=== PATIENT | male | born 1990 | race Caucasian/White ===

== ENCOUNTER 2019-01-25 11:18 | Inpatient (IN) | payer BC ==
--- NOTE | 2019-01-25 12:46 | EDM.PDOC ---
ED HPI GENERAL MEDICAL PROBLEM - General Chief Complaint: Neurological Problem Stated Complaint: MS FLARE UP Time Seen by Provider: 01/25/19 12:38 Source of Information: Reports: Patient, Family, RN Notes Reviewed History Limitations: Reports: No Limitations - History of Present Illness INITIAL COMMENTS - FREE TEXT/NARRATIVE: 28-year-old gentleman presents to the emergency department today with complaint of numbness and tingling below his knees as well as his fingertips bilaterally, he has a known history of multiple sclerosis currently on Tysabri infusions. He states his had the symptoms for the last 48 hours he also feels very weak today feels he's had a change in voice as well. He did contact his neurologist recommend report to the emergency department for evaluation and then consultation Headache Pain Score (Numeric/FACES): 3 - Related Data Allergies Allergy/AdvReac Type Severity Reaction Status Date / Time gadoteridol [From Prohance] Allergy Mild Itching Verified 01/25/19 11:46 Home Meds: Home Meds Natalizumab [Tysabri] 300 mg IV ASDIRECTED 01/25/19 [History] Past Medical History HEENT History: Reports: Impaired Vision Neurological History: Reports: MS Endocrine/Metabolic History: Reports: Obesity/BMI 30+ Social & Family History - Tobacco Use Smoking Status *Q: Never Smoker - Caffeine Use Caffeine Use: Reports: Coffee - Recreational Drug Use Recreational Drug Use: No ED ROS GENERAL - Review of Systems Review Of Systems: See Below Constitutional: Reports: Weakness HEENT: Reports: No Symptoms Respiratory: Reports: Cough Cardiovascular: Reports: No Symptoms GI/Abdominal: Reports: No Symptoms : Reports: No Symptoms Musculoskeletal: Reports: No Symptoms Skin: Reports: No Symptoms Neurological: Reports: Numbness, Tingling ED EXAM, GENERAL - Physical Exam Exam: See Below Exam Limited By: No Limitations General Appearance: Alert, WD/WN, No Apparent Distress Respiratory/Chest: No Respiratory Distress, Lungs Clear, Normal Breath Sounds, No Accessory Muscle Use, Chest Non-Tender Cardiovascular: Regular Rate, Rhythm, No Murmur GI/Abdominal: Soft, Non-Tender Course - Vital Signs Last Recorded V/S: Last Vital Signs Temp 96.7 F 01/25/19 12:51 Pulse 107 H 01/25/19 12:51 Resp 20 01/25/19 12:51 BP 147/97 H 01/25/19 12:51 Pulse Ox 95 01/25/19 12:51 - Orders/Labs/Meds Orders: Active Orders 24 hr Category Date Time Status ZIA VIRUS DNA,PCR (WHOLE BLOOD) Routine Lab 01/25/19 13:25 Received UA W/MICROSCOPIC [URIN] Urgent Lab 01/25/19 12:43 Ordered methylPREDNISolone Sod Succ [SOLU-Medrol] 1,000 mg Med 01/25/19 15:00 Active Dextrose 5% in Water 100 ml IV ONETIME Medication Orders Methylprednisolone Sodium Succinate 1,000 mg/ Dextrose/Water 100 mls @ 100 mls/ hr IV ONETIME ONE Stop: 01/25/19 15:59 Labs: Laboratory Tests 01/25/19 01/25/19 01/25/19 Range/Units 13:01 13:01 13:01 WBC 8.7 (4.5-11.0) K/uL RBC 5.03 (4.30-5.90) M/uL Hgb 15.0 (12.0-15.0) g/dL Hct 41.8 (40.0-54.0) % MCV 83 (80-98) fL MCH 30 (27-31) pg MCHC 36 (32-36) % Plt Count 255 (150-400) K/uL Neut % (Auto) 70 H (36-66) % Lymph % (Auto) 21 L (24-44) % [place] % (Auto) 8 H (2-6) % Eos % (Auto) 1 L (2-4) % Baso % (Auto) 1 (0-1) % Sodium 138 L (140-148) mmol/L Potassium 4.2 (3.6-5.2) mmol/L Chloride 100 (100-108) mmol/L Carbon Dioxide 25 (21-32) mmol/L Anion Gap 17.2 H (5.0-14.0) mmol/L BUN 10 (7-18) mg/dL Creatinine 1.0 (0.8-1.3) mg/dL Est Cr Clr Drug Dosing 128.50 mL/min Estimated GFR (MDRD) > 60 (>60) Glucose 121 H (74-106) mg/dL Lactic Acid 3.0 H (0.4-2.0) mmol/L Calcium 9.2 (8.5-10.1) mg/dL Total Bilirubin 1.0 (0.2-1.0) mg/dL AST 29 (15-37) U/L ALT 56 (12-78) U/L Alkaline Phosphatase 53 (46-116) U/L C-Reactive Protein (0.0-0.3) mg/dL Total Protein 8.2 (6.4-8.2) g/dL Albumin 4.6 (3.4-5.0) g/dL Globulin 3.6 H (2.3-3.5) g/dL Albumin/Globulin Ratio 1.3 (1.2-2.2) 01/25/19 Range/Units 13:01 WBC (4.5-11.0) K/uL RBC (4.30-5.90) M/uL Hgb (12.0-15.0) g/dL Hct (40.0-54.0) % MCV (80-98) fL MCH (27-31) pg MCHC (32-36) % Plt Count (150-400) K/uL Neut % (Auto) (36-66) % Lymph % (Auto) (24-44) % [place] % (Auto) (2-6) % Eos % (Auto) (2-4) % Baso % (Auto) (0-1) % Sodium (140-148) mmol/L Potassium (3.6-5.2) mmol/L Chloride (100-108) mmol/L Carbon Dioxide (21-32) mmol/L Anion Gap (5.0-14.0) mmol/L BUN (7-18) mg/dL Creatinine (0.8-1.3) mg/dL Est Cr Clr Drug Dosing mL/min Estimated GFR (MDRD) (>60) Glucose (74-106) mg/dL Lactic Acid (0.4-2.0) mmol/L Calcium (8.5-10.1) mg/dL Total Bilirubin (0.2-1.0) mg/dL AST (15-37) U/L ALT (12-78) U/L Alkaline Phosphatase (46-116) U/L C-Reactive Protein 0.04 (0.0-0.3) mg/dL Total Protein (6.4-8.2) g/dL Albumin (3.4-5.0) g/dL Globulin (2.3-3.5) g/dL Albumin/Globulin Ratio (1.2-2.2) Meds: Medications Generic Name Dose Route Start Last Admin Trade Name Sharon PRN Reason Stop Dose Admin Methylprednisolone Sodium 100 mls @ 100 mls/hr 01/25/19 15:00 Succinate 1,000 mg/ Dextrose/ IV 01/25/19 15:59 Water ONETIME ONE Departure - Departure Time of Disposition: 14:53 Disposition: Admitted As Inpatient 65 Condition: Fair Clinical Impression: MS (multiple sclerosis) - Discharge Information Referrals: Sonu Elizabeth CORN HUSK BALER [Primary Care Provider] - Forms: ED Department Discharge Additional Instructions: Appointment for MRI on 01/27/19 at 10:45 am. MRI brain Appointment for MRI on Thursday01/28/19 at 8:30 am. MRI spine - My Orders Last 24 Hours: My Active Orders 01/25/19 12:43 UA W/MICROSCOPIC [URIN] Urgent 01/25/19 13:25 ZAI VIRUS DNA,PCR (WHOLE BLOOD) Routine 01/25/19 15:00 methylPREDNISolone Sod Succ [SOLU-Medrol] 1,000 mg Dextrose 5% in Water 100 ml IV ONETIME - Assessment/Plan Last 24 Hours: My Active Orders 01/25/19 12:43 UA W/MICROSCOPIC [URIN] Urgent 01/25/19 13:25 ZIA VIRUS DNA,PCR (WHOLE BLOOD) Routine 01/25/19 15:00 methylPREDNISolone Sod Succ [SOLU-Medrol] 1,000 mg Dextrose 5% in Water 100 ml IV ONETIME Plan: Assessment Acuity = acute Site and laterality = exacerbation multiple sclerosis Etiology = unknown etiology Manifestations = weakness, numbness and tingling in the extremities Location of injury = Home Lab values = CBC, CMP unremarkable lactic acid elevated 3.0 CRP unremarkable chest x-ray shows no acute process, urinalysis is pending Plan Called discussed the case with Dr. Enrique neurologist at the [facility] neurology clinic at 1430 recommended 1 g steroids per day followed by MRI of brain cervical spine and thoracic spine with and without contrast. Called discussed case with hospitalist on-call at 1449 he kindly agreed to come and evaluate the patient in the emergency department for admission This note was dictated using [employer] voice recognition software please call with any questions on syntax or grammar.
--- NOTE | 2019-01-25 13:33 | CRLCR ---
INDICATION: Shortness of breath COMPARISON: None available. FINDINGS: PA and lateral views of the chest were obtained. The lungs are clear. No focal or diffuse infiltrates are present. The heart is normal in size. The mediastinum is normal in appearance. The osseous structures are normal in appearance for the patient`s age. IMPRESSION: Normal chest 2 views. Dictated by Jone Brown MD @ Jan 25 2019 1:30PM Signed by Dr. Jone Brown @ Jan 25 2019 1:31PM
[2019-01-25] MEDS ORDERED: methylPREDNISolone Sod Succ 1,000 MG in Dextrose 5% in Water 100 ML IV ONE ×4 (14:42→15:00)
--- NOTE | 2019-01-25 15:53 | PCM.HP.2 ---
H&P History of Present Illness - General Date of Service: 01/25/19 Admit Problem/Dx: Admission Diagnosis/Problem Admission Diagnosis/Problem Multiple sclerosis Source of Information: Patient, Provider History Limitations: Reports: No Limitations - History of Present Illness Initial Comments - Free Text/Narative: CC: my body feels like it just had a cast HPI: Himanshu presents to the emergency room today with 2 days of progressive muscle weakness as well as numbness and tingling involving his hands and legs. He noticed mild symptoms on Thursday, 2 days ago and also had symptoms yesterday that were worse but he was still able to work. Today he is too weak to do much of anything. He is concerned about weakness involving his speech, swallowing as well as his larger proximal muscles in both upper and lower extremities. He has developed some numbness and pins and needles tingling that involves his hands and his legs from the knee distally. He has noticed mild coughing/choking when trying to drink water unless he drinks very small sips. He has a mild generalized headache. No complaints about blurry vision or double vision. He feels a little short of breath and this has been slowly progressive over the past 24 hours. No complaints of chest pain or abdominal pain. No nausea or vomiting. No change in bowel or bladder habits. This feels similar to his previous flareups of multiple sclerosis though this one is more intense than usual. Workup in the emergency room has been reassuring so far with normal laboratory studies other than a mildly elevated lactic acid level. Vital signs are stable. Care was discussed with his neurologist and he recommended high-dose steroids and imaging of the brain, cervical spine and thoracic spine. He will be admitted to the hospital for further management. Headache Pain Score (Numeric/FACES): 3 - Related Data Allergies/Adverse Reactions: Allergies Allergy/AdvReac Type Severity Reaction Status Date / Time gadoteridol [From Prohance] Allergy Mild Itching Verified 01/25/19 11:46 Home Medications: Home Meds Natalizumab [Tysabri] 300 mg IV ASDIRECTED 01/25/19 [History] Past Medical History HEENT History: Reports: Impaired Vision Neurological History: Reports: MS Endocrine/Metabolic History: Reports: Obesity/BMI 30+ Social & Family History - Family History Neurological: Denies: MS - Tobacco Use Smoking Status *Q: Never Smoker - Caffeine Use Caffeine Use: Reports: Coffee - Alcohol Use Alcohol Use History: Yes - Recreational Drug Use Recreational Drug Use: No H&P Review of Systems - Review of Systems: Review Of Systems: See Below Free Text/Narrative: A complete 12 point review of systems was obtained. Pertinent positives and negatives are noted in the history of present illness. All other systems were reviewed and were negative except as noted. Exam - Exam Exam: See Below - Vital Signs Vital Signs: Last Vital Signs Temp 35.9 C 01/25/19 12:51 Pulse 105 H 01/25/19 15:07 Resp 18 01/25/19 15:07 BP 155/94 H 01/25/19 15:07 Pulse Ox 93 L 01/25/19 15:07 Weight: 136.985 kg - Exam Quality Assessment: No: Supplemental Oxygen General: Alert, Oriented, Cooperative. No: Mild Distress HEENT: Conjunctiva Clear, Mucosa Moist & [place]. No: Scleral Icterus Neck: Supple, Trachea Midline. No: Lymphadenopathy Lungs: Clear to Auscultation, Normal Respiratory Effort Cardiovascular: Regular Rate, Regular Rhythm. No: Systolic Murmur GI/Abdominal Exam: Normal Bowel Sounds, Soft, Non-Tender, No Distention Extremities: No Pedal Edema. No: Increased Warmth Peripheral Pulses: 2+: Dorsalis Pedis (L), Dorsalis Pedis (R) Skin: Warm, Dry. No: Rash Neuro Extensive - Mental Status: Alert, Oriented x3, Nl Response to Commands Neuro Extensive - Motor, Sensory, Reflexes: CN II-XII Intact, Abnormal Motor ( strength is 5 x 5 and symmetric at the hands and wrists as well as plantar and dorsi flexion of the feet. Strength is 4+/5 with knee extension and flexion as well as hip flexion. Strength is 4+/5 with flexion at the biceps and extension at the triceps). No: Dysarthria, Tremor DTR: 0: Bicep (L), Bicep (R), Patella (L), Patella (R) Psychiatric: Alert, Normal Affect - Patient Data Lab Results Last 24 hrs: Laboratory Results - last 24 hr 01/25/19 01/25/19 01/25/19 Range/Units 13:01 13:01 13:01 WBC 8.7 (4.5-11.0) K/uL RBC 5.03 (4.30-5.90) M/uL Hgb 15.0 (12.0-15.0) g/dL Hct 41.8 (40.0-54.0) % MCV 83 (80-98) fL MCH 30 (27-31) pg MCHC 36 (32-36) % Plt Count 255 (150-400) K/uL Neut % (Auto) 70 H (36-66) % Lymph % (Auto) 21 L (24-44) % [place] % (Auto) 8 H (2-6) % Eos % (Auto) 1 L (2-4) % Baso % (Auto) 1 (0-1) % Sodium 138 L (140-148) mmol/L Potassium 4.2 (3.6-5.2) mmol/L Chloride 100 (100-108) mmol/L Carbon Dioxide 25 (21-32) mmol/L Anion Gap 17.2 H (5.0-14.0) mmol/L BUN 10 (7-18) mg/dL Creatinine 1.0 (0.8-1.3) mg/dL Est Cr Clr Drug Dosing 128.50 mL/min Estimated GFR (MDRD) > 60 (>60) Glucose 121 H (74-106) mg/dL Lactic Acid 3.0 H (0.4-2.0) mmol/L Calcium 9.2 (8.5-10.1) mg/dL Total Bilirubin 1.0 (0.2-1.0) mg/dL AST 29 (15-37) U/L ALT 56 (12-78) U/L Alkaline Phosphatase 53 (46-116) U/L C-Reactive Protein (0.0-0.3) mg/dL Total Protein 8.2 (6.4-8.2) g/dL Albumin 4.6 (3.4-5.0) g/dL Globulin 3.6 H (2.3-3.5) g/dL Albumin/Globulin Ratio 1.3 (1.2-2.2) Urine Color (YELLOW) Urine Appearance (CLEAR) Urine pH (5.0-8.0) Ur Specific [place] (1.008-1.030) Urine Protein (NEGATIVE) mg/dL Urine Glucose (UA) (NEGATIVE) mg/dL Urine Ketones (NEGATIVE) mg/dL Urine Occult Blood (NEGATIVE) Urine Nitrite (NEGATIVE) Urine Bilirubin (NEGATIVE) Urine Urobilinogen (0.2-1.0) EU/dL Ur Leukocyte Esterase (NEGATIVE) Urine RBC (0-5) Urine WBC (0-5) Ur Epithelial Cells Amorphous Sediment Urine Bacteria Urine Mucus 01/25/19 01/25/19 Range/Units 13:01 14:49 WBC (4.5-11.0) K/uL RBC (4.30-5.90) M/uL Hgb (12.0-15.0) g/dL Hct (40.0-54.0) % MCV (80-98) fL MCH (27-31) pg MCHC (32-36) % Plt Count (150-400) K/uL Neut % (Auto) (36-66) % Lymph % (Auto) (24-44) % [place] % (Auto) (2-6) % Eos % (Auto) (2-4) % Baso % (Auto) (0-1) % Sodium (140-148) mmol/L Potassium (3.6-5.2) mmol/L Chloride (100-108) mmol/L Carbon Dioxide (21-32) mmol/L Anion Gap (5.0-14.0) mmol/L BUN (7-18) mg/dL Creatinine (0.8-1.3) mg/dL Est Cr Clr Drug Dosing mL/min Estimated GFR (MDRD) (>60) Glucose (74-106) mg/dL Lactic Acid (0.4-2.0) mmol/L Calcium (8.5-10.1) mg/dL Total Bilirubin (0.2-1.0) mg/dL AST (15-37) U/L ALT (12-78) U/L Alkaline Phosphatase (46-116) U/L C-Reactive Protein 0.04 (0.0-0.3) mg/dL Total Protein (6.4-8.2) g/dL Albumin (3.4-5.0) g/dL Globulin (2.3-3.5) g/dL Albumin/Globulin Ratio (1.2-2.2) Urine Color Yellow (YELLOW) Urine Appearance Clear (CLEAR) Urine pH 7.0 (5.0-8.0) Ur Specific [place] 1.025 (1.008-1.030) Urine Protein Negative (NEGATIVE) mg/dL Urine Glucose (UA) Negative (NEGATIVE) mg/dL Urine Ketones Negative (NEGATIVE) mg/dL Urine Occult Blood Negative (NEGATIVE) Urine Nitrite Negative (NEGATIVE) Urine Bilirubin Negative (NEGATIVE) Urine Urobilinogen 0.2 (0.2-1.0) EU/dL Ur Leukocyte Esterase Negative (NEGATIVE) Urine RBC 0-5 (0-5) Urine WBC 0-5 (0-5) Ur Epithelial Cells Rare Amorphous Sediment Not seen Urine Bacteria Not seen Urine Mucus Rare Result Diagrams: 01/25/19 13:01 01/25/19 13:01 *Q Meaningful Use (ADM) - VTE Risk Assess *Q Each Risk Factor Represents 1 Point: Obesity ( BMI > 25 kg/m2) Total Score 1 Point Risk Factors: 1 Each Risk Factor Represents 2 Points: None Total Score 2 Point Risk Factors: 0 Each Risk Factor Represents 3 Points: None Total Score 3 Point Risk Factors: 0 Each Risk Factor Represents 5 Points: None Total Score 5 Point Risk Factors: 0 Venous Thromboembolism Risk Factor Score *Q: 1 - Problem List (1) MS (multiple sclerosis) SNOMED Code(s): 95150460 ICD Code: G35 - MULTIPLE SCLEROSIS Status: Acute Current Visit: Yes Problem List Initiated/Reviewed/Updated: Yes Orders Last 24hrs: Active Orders 24 hr Category Date Time Status Patient Status Manage Transfer [TRANSFER] Routine ADT 01/25/19 15:47 Ordered ZIA VIRUS DNA,PCR (WHOLE BLOOD) Routine Lab 01/25/19 13:25 Received methylPREDNISolone Sod Succ [SOLU-Medrol] 1,000 mg Med 01/25/19 15:00 Active Dextrose 5% in Water 100 ml IV ONETIME Resuscitation Status Routine Resus Stat 01/25/19 15:48 Ordered Medication Orders Methylprednisolone Sodium Succinate 1,000 mg/ Dextrose/Water 100 mls @ 100 mls/ hr IV ONETIME ONE Stop: 01/25/19 15:59 Last Admin: 01/25/19 15:01 Dose: 100 mls/hr Assessment/Plan Comment:: ASSESSMENT AND PLAN - Acute exacerbation of multiple sclerosis - baseline of relapsing and remitting MS. Symptoms have progressed over the past 48 hourd the patient is having difficulty with activities of daily living. His neurologist was contacted and he recommended high-dose steroids as well as advanced imaging with MRI. Patient is not safe for outpatient management at this time given his significant weakness and impairments. -Solu-Medrol 1 g every 24 hours 3-5 days -Transition to prednisone once more stable -MRI of the brain, cervical spine and thoracic spine -Consultation with his neurologist Dr Enrique ([phone]) once imaging is available Maintenance issues - - DVT prophylaxis - mechanical - GI prophylaxis - not indicated - Nutrition - regular - Haq catheter - not indicated CODE STATUS - full code Admission justification - This patient will be admitted for inpatient services and is medically appropriate meeting medical necessity for inpatient admission as outlined in my documentation. I reasonably expect the patient will require inpatient services that span a period time over 2 midnights. I reasonably expect this patient to be discharged or transferred within 96 hours [facility]. Disposition - I would anticipate discharge home after the hospital stay Ady Burcigaa M.D. - Mortality Measure Prognosis:: Good
[2019-01-25] MEDS ORDERED: Ibuprofen 600 MG Tab PO PRN (16:11)
[2019-01-25] MEDS ORDERED: Magnesium Hydroxide 400 MG/5 ML Susp 30 ML Cup PO PRN (16:11)
[2019-01-25] MEDS ORDERED: Acetaminophen 325 MG Tab PO PRN (16:11)
[2019-01-25] MEDS ORDERED: Ondansetron 4 MG Tab.DIS PO PRN (16:11)
[2019-01-25] MEDS: Ondansetron 4 MG/2 ML SDV IV PRN (16:36)
[2019-01-25] MEDS: Sodium Chloride 0.9% 1,000 ML IV SCH (16:40)
[2019-01-25] MEDS: Albuterol 0.083% 2.5 MG/3 ML Neb Soln NEB PRN (20:32)
[2019-01-26] MEDS: Sodium Chloride 0.9% 1,000 ML IV SCH (01:44)
[2019-01-26] MEDS: Albuterol 0.083% 2.5 MG/3 ML Neb Soln NEB PRN ×5 (02:16→22:29)
[2019-01-26] MEDS ORDERED: diphenhydrAMINE 25 MG Cap PO PRN (04:17)
[2019-01-26] MEDS ORDERED: LORazepam 0.5 MG Tab PO PRN (09:01)
[2019-01-26] MEDS ORDERED: Sodium Chloride 0.9% 1,000 ML IV SCH (09:15)
--- NOTE | 2019-01-26 09:24 | CRLCR ---
INDICATION: Shortness of breath. TECHNIQUE: Chest 1 view COMPARISON: Chest radiograph 01/25/2019. FINDINGS: Decreased lung expansion with very low lung volumes since prior exam. Bibasilar atelectasis. No definite focal consolidation or effusions. No pneumothorax. The cardiac silhouette is largely obscured. Crowding of the hilar vasculature due to low lung volumes. IMPRESSION: Low lung volumes with bibasilar atelectasis. Dictated by Kita Rowan MD @ Jan 26 2019 9:20AM Signed by Dr. Kita Rowan @ Jan 26 2019 9:22AM
--- NOTE | 2019-01-26 09:40 | PCM.PN ---
- General Info Date of Service: 01/26/19 Subjective Update: Overnight the patient had difficulty with shortness of breath as well as some hypertension. He feels weaker today than yesterday. He is coughing a little bit but not producing any sputum. Repeat chest x-ray this morning did not show significant abnormalities. He feels too weak to stand. He has trouble even holding an emesis bag. Numbness and tingling and pins and needles sensation seemed to be worse today. Functional Status: Reports: Pain Controlled - Review of Systems General: Reports: Weakness. Denies: Fever Pulmonary: Reports: Shortness of Breath Neurological: Reports: Numbness, Paresthesia, Tingling, Trouble Speaking, Difficulty Walking, Weakness - Patient Data Vitals - Most Recent: Last Vital Signs Temp 36.1 C 01/26/19 03:00 Pulse 124 H 01/26/19 07:35 Resp 22 H 01/26/19 07:35 BP 152/79 H 01/26/19 07:35 Pulse Ox 2 L 01/26/19 07:35 Weight - Most Recent: 136.985 kg I&O - Last 24 Hours: Intake & Output 01/25/19 01/26/19 01/26/19 22:59 06:59 14:59 Output Total 100 Balance -100 Lab Results Last 24 Hours: Laboratory Results - last 24 hr 01/25/19 01/25/19 01/25/19 Range/Units 13:01 13:01 13:01 WBC 8.7 (4.5-11.0) K/uL RBC 5.03 (4.30-5.90) M/uL Hgb 15.0 (12.0-15.0) g/dL Hct 41.8 (40.0-54.0) % MCV 83 (80-98) fL MCH 30 (27-31) pg MCHC 36 (32-36) % Plt Count 255 (150-400) K/uL Neut % (Auto) 70 H (36-66) % Lymph % (Auto) 21 L (24-44) % Dawson % (Auto) 8 H (2-6) % Eos % (Auto) 1 L (2-4) % Baso % (Auto) 1 (0-1) % Sodium 138 L (140-148) mmol/L Potassium 4.2 (3.6-5.2) mmol/L Chloride 100 (100-108) mmol/L Carbon Dioxide 25 (21-32) mmol/L Anion Gap 17.2 H (5.0-14.0) mmol/L BUN 10 (7-18) mg/dL Creatinine 1.0 (0.8-1.3) mg/dL Est Cr Clr Drug Dosing 128.50 mL/min Estimated GFR (MDRD) > 60 (>60) Glucose 121 H (74-106) mg/dL Lactic Acid 3.0 H (0.4-2.0) mmol/L Calcium 9.2 (8.5-10.1) mg/dL Total Bilirubin 1.0 (0.2-1.0) mg/dL AST 29 (15-37) U/L ALT 56 (12-78) U/L Alkaline Phosphatase 53 (46-116) U/L C-Reactive Protein (0.0-0.3) mg/dL Total Protein 8.2 (6.4-8.2) g/dL Albumin 4.6 (3.4-5.0) g/dL Globulin 3.6 H (2.3-3.5) g/dL Albumin/Globulin Ratio 1.3 (1.2-2.2) Urine Color (YELLOW) Urine Appearance (CLEAR) Urine pH (5.0-8.0) Ur Specific [place] (1.008-1.030) Urine Protein (NEGATIVE) mg/dL Urine Glucose (UA) (NEGATIVE) mg/dL Urine Ketones (NEGATIVE) mg/dL Urine Occult Blood (NEGATIVE) Urine Nitrite (NEGATIVE) Urine Bilirubin (NEGATIVE) Urine Urobilinogen (0.2-1.0) EU/dL Ur Leukocyte Esterase (NEGATIVE) Urine RBC (0-5) Urine WBC (0-5) Ur Epithelial Cells Amorphous Sediment Urine Bacteria Urine Mucus 01/25/19 01/25/19 Range/Units 13:01 14:49 WBC (4.5-11.0) K/uL RBC (4.30-5.90) M/uL Hgb (12.0-15.0) g/dL Hct (40.0-54.0) % MCV (80-98) fL MCH (27-31) pg MCHC (32-36) % Plt Count (150-400) K/uL Neut % (Auto) (36-66) % Lymph % (Auto) (24-44) % Dawson % (Auto) (2-6) % Eos % (Auto) (2-4) % Baso % (Auto) (0-1) % Sodium (140-148) mmol/L Potassium (3.6-5.2) mmol/L Chloride (100-108) mmol/L Carbon Dioxide (21-32) mmol/L Anion Gap (5.0-14.0) mmol/L BUN (7-18) mg/dL Creatinine (0.8-1.3) mg/dL Est Cr Clr Drug Dosing mL/min Estimated GFR (MDRD) (>60) Glucose (74-106) mg/dL Lactic Acid (0.4-2.0) mmol/L Calcium (8.5-10.1) mg/dL Total Bilirubin (0.2-1.0) mg/dL AST (15-37) U/L ALT (12-78) U/L Alkaline Phosphatase (46-116) U/L C-Reactive Protein 0.04 (0.0-0.3) mg/dL Total Protein (6.4-8.2) g/dL Albumin (3.4-5.0) g/dL Globulin (2.3-3.5) g/dL Albumin/Globulin Ratio (1.2-2.2) Urine Color Yellow (YELLOW) Urine Appearance Clear (CLEAR) Urine pH 7.0 (5.0-8.0) Ur Specific [place] 1.025 (1.008-1.030) Urine Protein Negative (NEGATIVE) mg/dL Urine Glucose (UA) Negative (NEGATIVE) mg/dL Urine Ketones Negative (NEGATIVE) mg/dL Urine Occult Blood Negative (NEGATIVE) Urine Nitrite Negative (NEGATIVE) Urine Bilirubin Negative (NEGATIVE) Urine Urobilinogen 0.2 (0.2-1.0) EU/dL Ur Leukocyte Esterase Negative (NEGATIVE) Urine RBC 0-5 (0-5) Urine WBC 0-5 (0-5) Ur Epithelial Cells Rare Amorphous Sediment Not seen Urine Bacteria Not seen Urine Mucus Rare Med Orders - Current: Current Medications Acetaminophen (Tylenol) 650 mg PO Q4H PRN PRN Reason: Pain (Mild 1-3)/fever Last Admin: 01/25/19 18:14 Dose: 650 mg Albuterol (Proventil Neb Soln) 2.5 mg NEB Q4H PRN PRN Reason: Shortness of Breath Last Admin: 01/26/19 06:40 Dose: 2.5 mg Diphenhydramine HCl (Benadryl) 25 mg PO Q4H PRN PRN Reason: Other Last Admin: 01/26/19 04:38 Dose: 25 mg Methylprednisolone Sodium Succinate 1,000 mg/ Dextrose/Water 100 mls @ 100 mls/ hr IV Q24H RICHARD Sodium Chloride (Normal Saline) 1,000 mls @ 50 mls/hr IV ASDIRECTED [facility] Ibuprofen (Motrin) 600 mg PO Q6H PRN PRN Reason: Pain/Fever Last Admin: 01/26/19 02:16 Dose: 600 mg Lorazepam (Ativan) 0.5 mg IVPUSH Q4H PRN PRN Reason: Anxiety Lorazepam (Ativan) 0.5 mg PO Q4H PRN PRN Reason: Anxiety Magnesium Hydroxide (Milk Of Magnesia) 30 ml PO Q12H PRN PRN Reason: Constipation Ondansetron HCl (Zofran Odt) 4 mg PO Q6H PRN PRN Reason: Nausea able to take PO Ondansetron HCl (Zofran) 4 mg IV Q6H PRN PRN Reason: Nausea/Vomiting Last Admin: 01/25/19 16:36 Dose: 4 mg Senna/Docusate Sodium (Senna Plus) 1 tab PO BID PRN PRN Reason: Constipation Discontinued Medications Methylprednisolone Sodium Succinate 1,000 mg/ Dextrose/Water 100 mls @ 100 mls/ hr IV ONETIME ONE Stop: 01/25/19 15:59 Last Admin: 01/25/19 15:01 Dose: 100 mls/hr Sodium Chloride (Normal Saline) 1,000 mls @ 100 mls/hr IV ASDIRECTED [facility] Last Admin: 01/26/19 01:44 Dose: 100 mls/hr - Exam Quality Assessment: Supplemental Oxygen General: Alert, Oriented, Cooperative, Mild Distress HEENT: Pupils Equal Neck: Supple Lungs: Clear to Auscultation. No: Normal Respiratory Effort (mild increase in work of breathing ) Cardiovascular: Regular Rhythm, Tachycardia GI/Abdominal Exam: Soft, No Distention Extremities: No Pedal Edema. No: Increased Warmth Skin: Warm, Dry Neurological: Strength Equal Bilateral, Other (moderate weakness of proximal muscles of legs and arms ). No: Normal Speech Psy/Mental Status: Alert, Normal Affect - Problem List & Annotations (1) MS (multiple sclerosis) SNOMED Code(s): 07756432 Code(s): G35 - MULTIPLE SCLEROSIS Status: Acute Current Visit: Yes - Problem List Review Problem List Initiated/Reviewed/Updated: Yes - My Orders Last 24 Hours: My Active Orders 01/25/19 15:48 Resuscitation Status Routine 01/25/19 16:11 Patient Status [ADT] Routine Antiembolic Devices [RC] .Routine Intake and Output [RC] QSHIFT Notify Provider Vital Signs [RC] ASDIRECTED Oxygen Therapy [RC] PRN Up With Assistance [RC] ASDIRECTED VTE/DVT Education [RC] Per Unit Routine Vital Signs [RC] Q4H Acetaminophen [Tylenol] 650 mg PO Q4H PRN Docusate Sodium/Sennosides [Senna Plus] 1 tab PO BID PRN Ibuprofen [Motrin] 600 mg PO Q6H PRN Magnesium Hydroxide [Milk of Magnesia] 30 ml PO Q12H PRN Ondansetron [Zofran ODT] 4 mg PO Q6H PRN Ondansetron [Zofran] 4 mg IV Q6H PRN Sequential Compression Device [OM.PC] Routine 01/25/19 20:20 Albuterol [Proventil Neb Soln] 2.5 mg NEB Q4H PRN 01/25/19 20:21 RT Aerosol Therapy [RC] ASDIRECTED 01/25/19 Dinner Regular Diet [DIET] 01/26/19 04:17 diphenhydrAMINE [Benadryl] 25 mg PO Q4H PRN 01/26/19 07:00 Brain w wo Cont [MR] Routine Cervical Spine Comp w wo Cont [MR] Routine Thoracic Spine Comp w wo Cont [MR] Routine 01/26/19 08:12 EKG Documentation Completion [RC] ASDIRECTED EKG 12 Lead [EK] Urgent 01/26/19 09:01 LORazepam [Ativan] 0.5 mg IVPUSH Q4H PRN LORazepam [Ativan] 0.5 mg PO Q4H PRN 01/26/19 09:15 Sodium Chloride 0.9% [Normal Saline] 1,000 ml IV ASDIRECTED 01/26/19 15:00 methylPREDNISolone Sod Succ [SOLU-Medrol] 1,000 mg Dextrose 5% in Water 100 ml IV Q24H 01/27/19 05:00 BASIC METABOLIC PANEL,BMP [CHEM] Timed CBC W/O DIFF,HEMOGRAM [HEME] Timed (1) - Plan Plan:: ASSESSMENT AND PLAN - Acute exacerbation of multiple sclerosis - baseline of relapsing and remitting MS. Symptoms seem to have progressed even from yesterday but it has been less than 24 hours and steroids were initiated. He is very weak. Voice is weak. Cough is weak. -Solu-Medrol 1 g every 24 hours 3-5 days -Transition to prednisone once more stable -MRI of the brain, cervical spine and thoracic spine -Consultation with his neurologist Dr Enrique ([phone]) once imaging is available Maintenance issues - - DVT prophylaxis - mechanical - GI prophylaxis - not indicated - Nutrition - regular Disposition - I would anticipate discharge home after the hospital stay Ady Burciaga M.D.
[2019-01-26] MEDS ORDERED: guaiFENesin/Dextromethorphan 100-10 MG/5 ML Soln 10 ML Cup PO PRN (10:35)
[2019-01-26] MEDS: LORazepam 2 MG/ML SDV IVPUSH PRN ×3 (12:44→22:00)
[2019-01-26] MEDS ORDERED: methylPREDNISolone Sod Succ 1,000 MG in Dextrose 5% in Water 100 ML IV SCH ×2 (15:00)
[2019-01-26] MEDS: Ondansetron 4 MG/2 ML SDV IV PRN (15:48)
[2019-01-27] MEDS: LORazepam 2 MG/ML SDV IVPUSH PRN (02:04)
[2019-01-27] MEDS: Albuterol 0.083% 2.5 MG/3 ML Neb Soln NEB PRN (05:32)
--- NOTE | 2019-01-27 08:41 | CRLCR ---
Indication: Hypoxia Technique: Portable AP chest radiograph Comparison: One day prior Findings: Low lung volumes. There are mild bibasilar pulmonary opacities which are similar to prior. Stable heart size. No pneumothorax. No new pulmonary opacities. No acute osseous abnormality. Impression: Low lung volumes with stable bibasilar pulmonary opacities likely subsegmental atelectasis given low lung volumes.. Dictated by Maxwell Steve MD @ Jan 27 2019 8:37AM Signed by Dr. Maxwell Steve @ Jan 27 2019 8:39AM
[2019-01-27] MEDS ORDERED: Sodium Chloride 0.9% 1,000 ML IV SCH (09:15)
[2019-01-27] MEDS ORDERED: Insulin Lispro 100 Unit/ML 3 ML KwikPen SUBCUT SCH (10:00)
--- NOTE | 2019-01-27 10:16 | PCM.DCSUM1 ---
Discharge Summary - Hospital Course Brief History: 28 yr old male with relapsing and remitting MS who presented with weakness, numbess and tingling involving both upper and lower extremities. He was admitted for management of suspected MS flare. Diagnosis: Stroke: No - Discharge Data Discharge Date: 01/27/19 Discharge Disposition: DC/Tfer to Acute Hospital 02 Condition: Critical - Referral to Home Health Primary Care Physician: Sonu Elizabeth NP - Discharge Diagnosis/Problem(s) (1) MS (multiple sclerosis) SNOMED Code(s): 27678869 ICD Code: G35 - MULTIPLE SCLEROSIS Status: Acute Current Visit: Yes - Patient Summary/Data Hospital Course: Himanshu presented to the ER with two days of progressive generalized weakness and numbness and tingling involving both hands and legs below the knee. Laboratory studies in the emergency room were reassuring other than a mild elevation of the lactic acid. CRP was 0.04. Urinalysis was clear and chest x-ray was clear. Care was discussed with his neurologist Dr. Cantor at [facility] in the [facility] and it was thought this was likely a flare of his multiple sclerosis. He recommended high-dose steroids as well as advanced imaging involving the brain, cervical spine and thoracic spine. The patient was admitted to the hospital and overnight there were no acute issues. The morning after admission he was complaining of mild shortness of breath and felt a little bit weaker. He did require a small amount of supplemental oxygen throughout the day after admission but was otherwise stable and seemed to be doing a little bit better as the day went on. We were unable to complete an MRI of the day after admission because of the patient's inability to lay down. When he tried to lay flat he became very short of breath and anxious. We continued the high-dose steroids every 24 hours and he was receiving them at 3 PM. He did have some blood pressures that were up and down a little bit with ranges from 150-190 systolic. Heart rate was also a little bit labile anywhere between 100 and 140. Overnight prior to his transfer he had a more acute decompensation. Early this morning he was noted to be obtunded and hypoxic. Arterial blood gases were obtained and showed a pH of 6.9 with a PCO2 of 158. Chest x-ray showed low lung volumes but no infiltrate. Troponin level was undetectable. EKG showed a sinus tachycardia with no acute changes. Initially he was started on noninvasive ventilation and then transferred to the intensive care unit and intubated. Respiratory status has stabilized since intubation but he does remain on fairly high quantities of FiO2. Repeat arterial blood gases showed improvements in his pH up to 7.3 and his PCO2 was down to 60. Patient has been more alert and interactive as the PCO2 has been improving. He is receiving propofol for sedation and this is being titrated. Care was discussed with Dr Gay at [facility] in [place]. 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 I believe the benefits of transfer far outweigh the risks at this point. I am suspicious this is something other than multiple sclerosis with fairly rapid progression and diffuse symmetric weakness. His does report that he DID HAVE a flu shot on January 14 of this year. He has not received any other vaccinations recently. I spent 75 minutes of critical care time this morning with urgent evaluation, transfer to the ICU, ventilator adjustments and stabilization of the patient. - Patient Instructions Diet: NPO Activity: Bedrest Other/Special Instructions: Transfer to [facility] - acute resp failure with hypoxia and hypercapnia - Discharge Plan *PRESCRIPTION DRUG MONITORING PROGRAM REVIEWED*: Not Applicable *COPY OF PRESCRIPTION DRUG MONITORING REPORT IN PATIENT MOLINA: Not Applicable Home Medications: Home Meds Natalizumab [Tysabri] 300 mg IV ASDIRECTED 01/25/19 [History] Oxygen Therapy Mode: Mechanical Ventilation Referrals: Sonu Elizabeth NP [Primary Care Provider] - - Discharge Summary/Plan Comment DC Time >30 min.: Yes (45 - transfer to acute hospital ) - Patient Data Vitals - Most Recent: Last Vital Signs Temp 35.8 C 01/27/19 09:41 Pulse 117 H 01/27/19 07:32 Resp 18 01/27/19 10:00 BP 172/107 H 01/27/19 10:00 Pulse Ox 90 L 01/27/19 10:00 Weight - Most Recent: 136.985 kg I&O - Last 24 hours: Intake & Output 01/26/19 01/27/19 01/27/19 22:59 06:59 14:59 Intake Total 909 10 Output Total 850 200 Balance 59 -190 Lab Results - Last 24 hrs: Laboratory Results - last 24 hr 01/27/19 01/27/19 01/27/19 Range/Units 06:03 06:03 07:39 WBC 26.0 H (4.5-11.0) K/uL RBC 4.94 (4.30-5.90) M/uL Hgb 14.8 (12.0-15.0) g/dL Hct 42.6 (40.0-54.0) % MCV 86 (80-98) fL MCH 30 (27-31) pg MCHC 35 (32-36) % Plt Count 347 (150-400) K/uL Puncture Site Rt radial ABG pH 6.994 L* (7.350-7.450) ABG pCO2 158.0 H* (35.0-42.0) mmHg ABG pO2 66.1 L (75.0-100.0) mmHg ABG HCO3 36.4 H (22.0-26.0) mmol/L ABG Total CO2 36.1 H (23.0-27.0) mmol/L ABG O2 Saturation 81.6 L (95.0-98.0) % ABG O2 Content 17.2 (15.0-23.0) %vol ABG Base Excess -2.8 mm/L ABG Hemoglobin 15.5 (13.5-18.0) g/dL ABG Oxyhemoglobin 78.8 % ABG Carboxyhemoglobin 2.3 H (0.0-1.6) % ABG Methemoglobin 1.1 % Quang Test Passed O2 Delivery Device Simple mask Oxygen Flow Rate 15 L Sodium 137 L (140-148) mmol/L Potassium 4.6 (3.6-5.2) mmol/L Chloride 99 L (100-108) mmol/L Carbon Dioxide 32 (21-32) mmol/L Anion Gap 10.6 (5.0-14.0) mmol/L BUN 15 (7-18) mg/dL Creatinine 0.9 (0.8-1.3) mg/dL Est Cr Clr Drug Dosing 142.42 mL/min Estimated GFR (MDRD) > 60 (>60) Glucose 241 H (74-106) mg/dL Calcium 8.6 (8.5-10.1) mg/dL Troponin I (0.000-0.056) ng/mL 01/27/19 01/27/19 Range/Units 07:40 09:20 WBC (4.5-11.0) K/uL RBC (4.30-5.90) M/uL Hgb (12.0-15.0) g/dL Hct (40.0-54.0) % MCV (80-98) fL MCH (27-31) pg MCHC (32-36) % Plt Count (150-400) K/uL Puncture Site Rt radial ABG pH 7.299 L (7.350-7.450) ABG pCO2 60.5 H (35.0-42.0) mmHg ABG pO2 63.0 L (75.0-100.0) mmHg ABG HCO3 28.8 H (22.0-26.0) mmol/L ABG Total CO2 25.6 (23.0-27.0) mmol/L ABG O2 Saturation 91.4 L (95.0-98.0) % ABG O2 Content 19.2 (15.0-23.0) %vol ABG Base Excess 1.1 mm/L ABG Hemoglobin 15.5 (13.5-18.0) g/dL ABG Oxyhemoglobin 88.5 % ABG Carboxyhemoglobin 2.4 H (0.0-1.6) % ABG Methemoglobin 0.8 % Quang Test Passed O2 Delivery Device Ventilator Oxygen Flow Rate L Sodium (140-148) mmol/L Potassium (3.6-5.2) mmol/L Chloride (100-108) mmol/L Carbon Dioxide (21-32) mmol/L Anion Gap (5.0-14.0) mmol/L BUN (7-18) mg/dL Creatinine (0.8-1.3) mg/dL Est Cr Clr Drug Dosing mL/min Estimated GFR (MDRD) (>60) Glucose (74-106) mg/dL Calcium (8.5-10.1) mg/dL Troponin I < 0.017 (0.000-0.056) ng/mL Med Orders - Current: Current Medications Acetaminophen (Tylenol) 650 mg PO Q4H PRN PRN Reason: Pain (Mild 1-3)/fever Last Admin: 01/25/19 18:14 Dose: 650 mg Albuterol (Proventil Neb Soln) 2.5 mg NEB Q4H PRN PRN Reason: Shortness of Breath Last Admin: 01/27/19 05:32 Dose: 2.5 mg Diphenhydramine HCl (Benadryl) 25 mg PO Q4H PRN PRN Reason: Other Last Admin: 01/26/19 04:38 Dose: 25 mg Guaifenesin/Dextromethorphan (Robitussin Dm) 10 ml PO Q4H PRN PRN Reason: Cough Methylprednisolone Sodium Succinate 1,000 mg/ Dextrose/Water 100 mls @ 100 mls/ hr IV Q24H RICHARD Last Admin: 01/26/19 15:33 Dose: 100 mls/hr Propofol (Diprivan 100 Ml) 100 mls @ 4.11 mls/hr IV TITRATE RICHARD; Protocol Last Titration: 01/27/19 09:51 Dose: 50 mcg/kg/min, 41.096 mls/hr Sodium Chloride (Normal Saline) 1,000 mls @ 25 mls/hr IV ASDIRECTED [facility] Last Admin: 01/27/19 09:08 Dose: 25 mls/hr Ibuprofen (Motrin) 600 mg PO Q6H PRN PRN Reason: Pain/Fever Last Admin: 01/26/19 02:16 Dose: 600 mg Insulin Human Lispro (Humalog) 0 unit SUBCUT Q6H RICHARD; Protocol Last Admin: 01/27/19 09:36 Dose: 6 units Lorazepam (Ativan) 0.5 mg IVPUSH Q4H PRN PRN Reason: Anxiety Last Admin: 01/27/19 02:04 Dose: 0.5 mg Magnesium Hydroxide (Milk Of Magnesia) 30 ml PO Q12H PRN PRN Reason: Constipation Ondansetron HCl (Zofran Odt) 4 mg PO Q6H PRN PRN Reason: Nausea able to take PO Ondansetron HCl (Zofran) 4 mg IV Q6H PRN PRN Reason: Nausea/Vomiting Last Admin: 01/26/19 15:48 Dose: 4 mg Senna/Docusate Sodium (Senna Plus) 1 tab PO BID PRN PRN Reason: Constipation Discontinued Medications Methylprednisolone Sodium Succinate 1,000 mg/ Dextrose/Water 100 mls @ 100 mls/ hr IV ONETIME ONE Stop: 01/25/19 15:59 Last Admin: 01/25/19 15:01 Dose: 100 mls/hr Sodium Chloride (Normal Saline) 1,000 mls @ 100 mls/hr IV ASDIRECTED [facility] Last Infusion: 01/26/19 08:25 Dose: 50 mls/hr Sodium Chloride (Normal Saline) 1,000 mls @ 50 mls/hr IV ASDIRECTED [facility] Last Admin: 01/26/19 14:07 Dose: 50 mls/hr Lorazepam (Ativan) 0.5 mg PO Q4H PRN PRN Reason: Anxiety
--- NOTE | 2019-01-27 14:54 | ANES ---
DATE OF SERVICE: 01/27/2019 I was called this morning by Dr. Burciaga for a gentleman who was in respiratory failure with MS flare up and was needing an emergency intubation. I was at the bedside at approximately 8:40. Vital signs were noted. Heart rate was in the 120s. O2 saturation was approximately 89% to 90% on 100% FiO2 on the BiPAP. The patient was obtunded and did not respond to voice command or painful stimuli. Equipment was gathered. Did intubation using a MAC 3 blade. Grade 1 view was noted. Cords were clear. No signs of aspiration. 8.0 ET tube was placed and secured at approximately 24. Bilateral breath sounds were noted by Dr. Burciaga. A positive end-tidal CO2 change was noted. O2 saturations were up to 95% after intubation. Respiratory Therapy was at the bedside and placed the patient on a ventilator. Prior to leaving, the patient's vital signs were stable. O2 saturations did not drop with intubation. Dr. Burciaga took back over care. The patient will be transferred to [place] later today. Bryant Bautista CRNA /[id number]
== END 2019-01-27 11:14 | DRG 43 ==
LOC: JP.ED 11:18 → JP.MS 15:47 → JP.ICU 01-27 08:50
PROVIDERS: ADMIT Internal Medicine; ATTEND Internal Medicine
PROC: 0BH17EZ Insertion of Endotracheal Airway into Trachea, Via Natural or Artificial Opening (ICD-10-PCS; principal; 2019-01-27)
PROC: 5A1935Z Respiratory Ventilation, Less than 24 Consecutive Hours (ICD-10-PCS; 2019-01-27)
DX: G35 Multiple sclerosis (principal); J96.02 Acute respiratory failure with hypercapnia; J96.01 Acute respiratory failure with hypoxia; H54.7 Unspecified visual loss; R00.0 Tachycardia, unspecified; E66.9 Obesity, unspecified; I10 Essential (primary) hypertension; Z88.8 Allergy status to other drugs, medicaments and biological substances; Z68.38 Body mass index [BMI] 38.0-38.9, adult
CPT/HCPCS: 36415; 36600; 51702; 71045; 71046; 80048; 80053; 81001; 82803; 83605; 84484; 85025; 85027; 86140; 87798; 93005; 93010; 94002; 94640; 94660; 94762; 96365; 99285-25; A9270-GY; J1815; J2060; J2405; J2704; J2930; J7030; J7060